=== PATIENT | female | born 1955 | race Caucasian/White ===

== ENCOUNTER 2017-04-06 05:25 | Day surgery (SDC) | payer OTHER ==
[2017-03-30 13:41] LABS: HEMATOCRIT 43.3 % (37.0-47.0); HEMOGLOBIN 14.9 gm/dL (12.0-15.0); MCH 32.7 pg (26.0-34.0); MCHC 34.5 g/dL (28.0-37.0); MCV 94.7 fL (80.0-100.0); RBC 4.57 mil/uL (4.20-5.00); RDW 12.5 % (10.5-14.5); WBC 5.9 thou/uL (4.0-11.0)
[2017-03-30 13:49] LABS: ALBUMIN 3.9 g/dL (3.4-5.0); CALCIUM 9.4 mg/dL (8.5-10.1); CREATININE 0.7 mg/dL (0.6-1.0)
[2017-03-30 13:50] LABS: URINE BILIRUBIN NEGATIVE (Negative); URINE BLOOD NEGATIVE (Negative); URINE CLARITY CLEAR; URINE COLOR YELLOW; URINE GLUCOSE-RANDOM* NEGATIVE (Negative); URINE KETONES NEGATIVE (Negative); URINE LEUKOCYTES-REFLEX NEGATIVE (Negative); URINE NITRITE-REFLEX NEGATIVE (Negative); URINE PROTEIN (DIPSTICK) NEGATIVE (Negative); URINE SPECIFIC GRAVITY >= 1.030 (1.005-1.035); URINE UROBILINOGEN 0.2 E.U./dl (0.2-1.0)
[2017-03-30 13:55] LABS: PROTIME 10.2 Seconds (9.3-11.4)
[~2017-04-06] VITALS: Ht 172.7 cm; Wt 90.3 kg
--- NOTE | ~2017-04-06 | EKG ---
[address] [address] ELECTROCARDIOGRAM REPORT Name: EUGENIECARMELO Room #: PRE [facility]..#: [id number] Admission: Attend Phys: Yariel Lozano MD Discharge: Date of : 55 Report #: [id number] THIS REPORT FOR: //name// [facility] Test Date: 2017-03-30 Test Time: 13:47:51 Pat Name: CARMELO TRAORE Department: Room: Gender: F Director Of Instruction: yajaira : 1955 Requested By: Yariel Lozano Order Number: [id number] MD: Mark Bonner Measurements Intervals [place] Rate: 77 P: 75 WV: 136 QRS: -48 QRSD: 95 T: 30 QT: 399 QTc: 452 Interpretive Statements Sinus rhythm LAD, consider left anterior fascicular block No previous ECG available for comparison Electronically Signed On 03-30-2017 15:34:25 LINUX ARCHITECT by Mark Bonner [email or web address] <ELECTRONICALLY SIGNED> By: Mark Bonner MD 03/30/17 1534 1347 1347 Mark Bonner MD /JOSÉ MIGUEL
--- NOTE | ~2017-04-06 | O ---
[facility] [place] [address] OPERATIVE REPORT Name: CARMELO TRAORE Room #: DEP [facility] Flaco.#: [id number] Admission: 04/06/17 Attend Phys: Yariel Lozano MD Discharge: 04/06/17 Date of : 55 Report #: [id number] THIS REPORT FOR: //name// CC: NIKKI SALINAS Physician staff Yariel Lozano DATE OF SERVICE: 04/06/2017 PREOPERATIVE DIAGNOSIS: Right hip osteoarthritis. POSTOPERATIVE DIAGNOSIS: Right hip osteoarthritis. PROCEDURE: Right total hip arthroplasty. SURGEON: Yariel Lozano MD PARAPROFESSIONAL INTERPRETER: Pam Reaves PA-C INDICATIONS FOR ASSISTANCE: Throughout the case extensive retraction and manipulation of the hip was required including dislocation and reduction of the hip. This was afforded to me by my medical laboratory assistant. ANESTHESIA: General endotracheal. IMPLANTS: [employer] size 56 R3 acetabular cup with 1 acetabular screw, a size 13 high offset Synergy press fit stem and a size 40+0 Oxinium head. ESTIMATED BLOOD LOSS: 200 mL. COMPLICATIONS: None. SPECIMENS: None. CONDITION UPON LEAVING THE OR: Stable. INDICATION FOR PROCEDURE: The patient a 62-year-old female with severe right hip osteoarthritis. She has failed conservative treatment for this and after discussion with her, she elected for right total hip arthroplasty. DESCRIPTION OF PROCEDURE: Risks, benefits, alternatives, complications were discussed in detail with the patient including but not limited to risk of anesthesia, risk of damage to nerves, arteries, blood vessels, risk for infection with bleeding, risk for continued hip pain, leg length discrepancy, instability and need for reoperation. Informed consent was obtained from the patient. Right hip was appropriately marked in the preoperative holding area. [address] [address] OPERATIVE REPORT Name: CARMELO TRAORE Room #: DEP [facility] Chastity#: [id number] Admission: 04/06/17 Attend Phys: Yariel Lozano MD Discharge: 04/06/17 Date of : 55 Report #: [id number] She was brought to the operating room and placed in the supine position on the operating room table. General endotracheal anesthesia was induced without complication. IV Ancef was given for preoperative antibiotics. She was placed in the left lateral decubitus position with right hip uppermost. Right hip and lower extremity were prepped and draped in normal sterile fashion. Timeout was performed properly identifying the patient and procedure as well as the instrumentation. All in the operating room were in agreement. Standard posterior approach to the hip was made with 10 blade through the skin. Dissection was taken down the fascia with Bovie cautery. Fascia was cleaned off with a Bennett elevator and a fresh 10 blade was used to make a fascial incision. This was taken proximally and distally with curved Lozano scissor. Charnley retractor was placed. Trochanteric bursa was taken down with Bovie cautery. Piriformis tendon was identified, tagged and taken down. Short external rotators were also taken down with Bovie cautery. Capsulotomy was made and capsule ends were tagged for later repair. Hip dislocated and there was extensive osteoarthritic change of the femoral head. Femoral neck cut was made 1 cm proximal to lesser trochanter based on preoperative templating. The femoral head was removed. Deep acetabular retractors were placed and the labrum was removed sharply. Pulvinar was removed with Bovie cautery. Acetabulum was then sequentially reamed up to a size 56 at which point, there was excellent bleeding cancellous bone. A size 55 trial cup was placed and found to have a good fit. A final size 56 R3 acetabular cup was placed and seated. One acetabular screw was placed for backup fixation. Polyethylene liner for a 40 head was placed. Attention was then turned to the femur. This was reamed and broached up to a size 13, at which point the size 13 broach was stable. This was trialed with a high offset neck and a 40+0 head. Hip was reduced, taken through range of motion, found to be stable, found to have equal leg lengths. Hip was dislocated and broach was removed and final size 13 high offset Synergy press fit stem was placed. This was trialed again with a 40 head. Hip was reduced, taken through range of motion, found to be stable, found to have equal leg length. Hip was dislocated and a final size 40+0 Oxinium head was placed. Hip was reduced, taken through range of motion, found to be stable, found to have equal leg lengths. The wound was thoroughly irrigated with normal saline. Periarticular injection consisting of morphine, ropivacaine, epinephrine and Toradol was placed on the DIP joint. A gram of vancomycin was placed deep in the hip joint. The capsule and piriformis were repaired with 0 FiberWire. Fascia was closed with 0 Vicryl, skin was closed with 2-0 Vicryl, 3-0 Monocryl. Dermabond and thecal dressing was applied. The patient tolerated procedure well and went to the recovery room under care of anesthesia postoperatively. <ELECTRONICALLY SIGNED> By: Yariel Lozano MD 04/15/17 0728 [id number] [id number] Yariel Lozano MD /nt
[~2017-04-06 05:25] MED LIST: B COMPLEX1 EACH PO; CENTRUM SILVER1 EAC4 PO; DHA100 MG PO; ENZYME DIGEST1 EACH PO; HYDROCODON-ACE1 EAC5 PO; IBUPROFEN 200200 M1 PO; TEA TREE1 ML PO; UBIQUINOL PO; VITAMIN B-1100 M1 PO; VITAMIN B-12500 MC4 PO; VITAMIN B-6250 MG PO; VITAMIN D1000 UNI1 PO; [UNRECOGNIZED DRUG - OTHER] PO; [UNRECOGNIZED DRUG - OTHER] PO
[2017-04-06 07:29] VITALS: BP 107/70
[2017-04-06] MEDS ORDERED: MS CONTIN15 MG PO (12:26)
[2017-04-06] MEDS ORDERED: TRI-BUFFERED A325 M1 PO (12:26)
[2017-04-06] MEDS ORDERED: NEURONTIN 300300 M1 PO (12:27)
[2017-04-06] MEDS ORDERED: PERCOCET PO (12:27)
[2017-04-06] MEDS ORDERED: KEFLEX500 M1 PO (12:28)
[2017-04-06 13:02] VITALS: BP 107/70
== END 2017-04-06 14:43 | disposition home or self-care (01) ==
LOC: OR 05:25 → TBA 05:27 → OR 10:06
PROVIDERS: Orthopaedic Surgery
DX: M16.11 Unilateral primary osteoarthritis, right hip (principal); Z87.891 Personal history of nicotine dependence; Z98.890 Other specified postprocedural states; Z88.6 Allergy status to analgesic agent; Z79.891 Long term (current) use of opiate analgesic
CPT/HCPCS: 50010; 50101; 50382; 50414; 51771; 53000; 53078; 53368; 54118; 56524; 56527; 56528; 56530; 57095; 62110; 62900; 70005